=== PATIENT | female | born 1965 | race Caucasian/White ===

== ENCOUNTER → 2017-02-22 | Outpatient (CLI) | payer BC | LOC: MRI 13:00 → EMI 16:08 → MRI 16:30 | DX: G43.109 Migraine with aura, not intractable, without status migrainosus (principal) | CPT/HCPCS: 70551 ==

== ENCOUNTER → 2020-12-24 | Outpatient (CLI) | payer BC | LOC: HEART 5 09:20 | DX: R06.02 Shortness of breath (principal) | CPT/HCPCS: 94010; 94729 ==